=== PATIENT | female | born 2005 | race African-American/Black ===

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

== ENCOUNTER 2024-05-11 16:55 | Emergency (ER) | payer SELFPAY ==
[2024-05-11] MEDS ORDERED: Ondansetron ODT 4 MG TAB ONE (17:30)
[2024-05-11] MEDS ORDERED: Dexamethasone 10 MG/ML VIAL ONE (17:30)
[2024-05-11] MEDS ORDERED: Acetaminophen 500 MG TAB ONE (17:30)
[2024-05-11 17:56] LABS: Influenza A by NAA Not Detected (NotDetected); Influenza B by NAA Not Detected (NotDetected); SARS-CoV-2 NAA Rapid Test Not Detected (NotDetected)
== END 2024-05-11 18:15 | disposition home or self-care (01) ==
LOC: CSHERS 16:55
DX: B34.9 Viral infection, unspecified (principal)
CPT/HCPCS: 71045; J1100; Q0162

== ENCOUNTER 2024-12-23 07:49 | Emergency (ER) | payer SELFPAY ==
[2024-12-23 08:49] LABS: #Basophils Less than 0.03 10x3/uL (0.0-0.2); #Eosinophils 0.05 10x3/uL (0.0-0.5); #Monocytes 0.63 10x3/uL (0.0-1.1); #Neutrophils 4.46 10x3/uL (1.5-8.4); %Basophils 0.3 % (0.0-2.0); %Eosinophils 0.7 % (0.0-6.0); %Lymphocytes 26.8 % (18.0-47.0); %Monocytes 8.9 % (0.0-10.0); Bilirubin Neg (Negative); Blood, Urine Negative (Negative); Clarity Slightly Cloudy (Clear); Glucose, Urine (Dipstick) Normal (Negative); Hematocrit 40.6 % (34.9-44.5); Hemoglobin 12.6 g/dL (12.0-15.5); Ketone, Urine Negative (Negative); Leukocyte 500 (Negative); Mean Corpuscular Hemoglobin 25.4 pg (27.0-33.0); Mean Corpuscular Volume 81.9 fL (81.6-98.3); Mean Platelet Volume 10.6 fL (7.4-10.4); Nitrite Negative (Negative); Platelet Count 274 10x3/uL (150-450); Protein, Urine (Dipstick) 15 mg/dl (Neg-Trace); RBC Distribution Width 13.2 % (11.5-14.5); Red Blood Cell (RBC) Count 4.96 10x6/uL (3.90-5.03); Urobilinogen Normal mg/dL (Less than 2); White Blood Cell (WBC) Count 7.08 10x3/uL (3.5-10.5)
[2024-12-23 09:04] LABS: PTT 22.5 sec (22.0-33.0); Prothrombin Time 11.2 sec (9.5-12.1)
[2024-12-23 09:07] LABS: Bacteria/HPF 4+ HPF (None Seen); CAUTI Indications for Culture Pregnancy; RBC/HPF 0-3 HPF (0-3); Squamous Epithelial Greater than 50 HPF (0-3)
[2024-12-23 09:08] LABS: Urine Culture Reflex Yes Yes
[2024-12-23 09:10] LABS: ALT (SGPT) 16 U/L (Less than 34); AST (SGOT) 17 U/L (11-34); Albumin 4.5 g/dL (3.1-4.5); Alkaline Phosphatase 97 U/L (40-100); Anion Gap 12 mmol/L (10-20); BUN (Urea Nitrogen) 9 mg/dL (7.0-18.7); Bilirubin, Total 0.2 mg/dL (0.3-1.2); Calc. Creatinine Clearance 0 mL/min (70-130); Calcium 9.8 mg/dL (7.8-10.44); Carbon Dioxide 22 mmol/L (22-29); Chloride 105 mmol/L (98-107); Estimated GFR 131; Globulin 3.7 g/dL (2.4-3.5); Glucose 92 mg/dL (70-105); Potassium 3.8 mmol/L (3.5-5.1); Protein, Total 8.2 g/dL (6.0-8.3); Sodium 135 mmol/L (136-145)
== END 2024-12-23 09:40 | disposition home or self-care (01) ==
LOC: CSHERS 07:49
DX: O20.9 Hemorrhage in early pregnancy, unspecified (principal); Z3A.01 Less than 8 weeks gestation of pregnancy
CPT/HCPCS: 36415; 80053; 81001; 84702; 85025; 85610; 85730; 86900; 86901; 87086; 99284